=== PATIENT | male | born 1985 | race Two or more races ===

== ENCOUNTER 2017-05-02 21:56 | Emergency (ER) | payer MEDICAID ==
[~2017-05-02] VITALS: Ht 175.3 cm; Wt 84.0 kg
[2017-05-02 22:23] VITALS: BP 127/73
== END 2017-05-03 01:48 | disposition left against medical advice (07) ==
LOC: ER 21:56
DX: Z53.21 Procedure and treatment not carried out due to patient leaving prior to being seen by health care provider (principal)